=== PATIENT | male | born 1955 ===

== ENCOUNTER 2017-10-08 10:12 | Emergency (ER) | payer BC ==
[2017-10-08] MEDS ORDERED: Sulfamethox/Trimethoprim DS 800/160* TAB PO ONE (12:07)
--- NOTE | 2017-10-08 12:14 | UC ---
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 low grade temp chills no PHAN - History of Current Complaint Chief Complaint: UCSkin Time Seen by Provider: 10/08/17 11:52 Stated Complaint: SWOLLEN FACE Hx Obtained From: Patient Onset/Duration: Gradual Onset, Lasting Weeks Onset Severity: Mild Current Severity: Moderate Pain Intensity: 7 Pain Scale Used: 0-10 Numeric Location: Nose Character: Swelling, Pain, Redness, Painful Aggravating Factor(s): Touch Alleviating Factor(s): Nothing - Allergy/Home Medications Allergies/Adverse Reactions: Allergies Allergy/AdvReac Type Severity Reaction Status Date / Time No Known Allergies Allergy Verified 10/08/17 10:34 Home Medications: Home Medications Ibuprofen TAB* [Advil TAB*] 1,000 mg PO BEDTIME 10/08/17 [History Confirmed ] Review of Systems Constitutional: Chills Skin: Negative Eyes: Negative ENT: Nasal Discharge, Sinus Pain/Tenderness Respiratory: Negative Cardiovascular: Negative Gastrointestinal: Negative Genitourinary: Negative Motor: Negative Neurovascular: Negative Musculoskeletal: Negative Neurological: Negative Psychological: Negative Is Patient Immunocompromised?: No All Other Systems Reviewed And Are Negative: Yes PMH/Surg Hx/FS Hx/Imm Hx Previously Healthy: Yes Cardiovascular History: Hypertension - not treated - Surgical History Surgical History: Yes Surgery Procedure, Year, and Place: reconstructive surgery to right hip and left jaw 1984 - Family History Known Family History: Positive: Hypertension - Social History Alcohol Use: Daily Substance Use Type: None Smoking Status (MU): Heavy Every Day Tobacco Smoker Household Exposure Type: Cigarettes Physical Exam Triage Information Reviewed: Yes Appearance: Well-Appearing, Well-Nourished, Pain Distress Vital Signs: Initial Vital Signs Temp 98.8 F 10/08/17 10:25 Pulse 88 10/08/17 10:25 Resp 16 10/08/17 10:25 BP 179/106 10/08/17 10:25 Pulse Ox 98 10/08/17 10:25 Vital Signs Reviewed: Yes Eyes: Positive: Conjunctiva Clear, Other: - R>L lid edema ENT: Positive: Hearing grossly normal, Sinus tenderness - R>L max Neck: Positive: Supple, Nontender, No Lymphadenopathy Respiratory: Positive: Chest non-tender, Lungs clear, Normal breath sounds, No respiratory distress, No accessory muscle use Cardiovascular: Positive: RRR, No Murmur Course/Dx - Diagnoses Provider Diagnoses: nasal vestibulitis. hypertension. tobacco abuse Discharge - Sign-Out/Discharge Documenting (check all that apply): Discharge - Discharge Plan Condition: Stable Disposition: HOME Prescriptions: Amoxicillin/Clavulanate TAB* [Augmentin TAB 875*] 875 mg PO BID #20 tab Mupirocin 2% OINT* [Bactroban 2 % Oint*] 1 applic TOPICAL TID #1 tube Sulfamethox/Trimethoprim DS* [Bactrim DS 800/160 TAB*] 1 tab PO BID #20 tab Patient Education Materials: Cellulitis (ED), Sinusitis (ED) Forms: *Work Release Referrals: [facility] [Outside] - As Soon As Possible (call for help finding a local MD) Additional Instructions: warm facial compresses a culture is pending we may be able to have you just take one antibiotic when we get the results back TO ER for worsening symptoms for fever for headache IF NOT IMPROVED IN 2-3 days This infection could worsen to the point you could need surgery or hospitalization if it doesn't quickly respond to oral antibiotics - Billing Disposition and Condition Condition: STABLE Disposition: HOME Images Head: 1 - septal swelling. purulent d/c from rigtht nare (septum) 2 - swollen/tender
[2017-10-08 12:20] VITALS: BP 174/92
--- NOTE | 2017-10-10 16:10 | UC ---
- Progress Note Progress Note: Please call patient check that he is feeling better and symptoms are resolving. Please ask patient to stop taking Bactrim and please finish the Augmentin. If symptoms are worsening please ask him to get rechecked. Discharge - Sign-Out/Discharge Documenting (check all that apply): Post-Discharge Follow Up - Discharge Plan Condition: Stable Disposition: HOME Prescriptions: Amoxicillin/Clavulanate TAB* [Augmentin TAB 875*] 875 mg PO BID #20 tab Mupirocin 2% OINT* [Bactroban 2 % Oint*] 1 applic TOPICAL TID #1 tube Ondansetron TAB* [Zofran Tab*] 4 mg PO Q6H PRN #10 tab PRN Reason: Nausea Sulfamethox/Trimethoprim DS* [Bactrim DS 800/160 TAB*] 1 tab PO BID #20 tab Patient Education Materials: Cellulitis (ED), Sinusitis (ED) Forms: *Work Release Referrals: [facility] [place] [facility] [Outside] - As Soon As Possible (call for help finding a local MD) Additional Instructions: warm facial compresses a culture is pending we may be able to have you just take one antibiotic when we get the results back TO ER for worsening symptoms for fever for headache IF NOT IMPROVED IN 2-3 days This infection could worsen to the point you could need surgery or hospitalization if it doesn't quickly respond to oral antibiotics - Billing Disposition and Condition Condition: STABLE Disposition: HOME
== END 2017-10-08 12:27 | disposition home or self-care (01) ==
LOC: UCEAST 10:12
DX: J34.89 Other specified disorders of nose and nasal sinuses (principal); B95.61 Methicillin susceptible Staphylococcus aureus infection as the cause of diseases classified elsewhere; I10 Essential (primary) hypertension; F17.210 Nicotine dependence, cigarettes, uncomplicated
CPT/HCPCS: 87070; 87077; 87186; 87205; 87640; 87641; 99202; A9270-GY; G0463